=== PATIENT | female | born 1950 | race Two or more races ===

== ENCOUNTER 2025-03-15 18:01 | Day surgery (SDC) | payer OTHER ==
[~2025-03-15 18:01] MED LIST: DIPHENHYDRAMINE HCL 50 MG/ML VIAL 1ML IV ONE; ENALAPRILAT DIHYDRATE 1.25 MG/ML VIAL IV ONE; MIDAZOLAM HCL 2 MG/2 ML VIAL IV ONE; fentaNYL CITRATE 50 MCG/ML AMPUL IV PUSH ONE
== END 2025-03-15 18:03 | disposition home or self-care (01) ==
LOC: AMB-ENDOS 18:01
PROVIDERS: ATTEND Internal Medicine
DX: K63.5 Polyp of colon (principal); K57.30 Diverticulosis of large intestine without perforation or abscess without bleeding